=== PATIENT | female | born 1975 | race Caucasian/White ===

== ENCOUNTER 2018-12-16 16:37 | Emergency (ER) | payer OTHER ==
[2018-12-16 16:48] VITALS: TEMP 98.2
--- NOTE | 2018-12-16 17:50 | ED ---
ENT HPI - General Chief complaint: ENT Stated complaint: feels like something in throat x1 week Time Seen by Provider: 12/16/18 17:11 Source: patient Mode of arrival: ambulatory Limitations: no limitations - History of Present Illness Initial comments: Patient is a 43-year-old female presenting to the emergency Department with complaints of a feeling like something is stuck in her esophagus for the past 5 days. Patient states she has an appointment tomorrow to get a gastric emptying study performed, however she has been unable to eat solid foods for the past 5 days secondary to this feeling. Patient states she has tried carbonated beverages without improvement in symptoms. Patient states she went to [facility] yesterday for same complaint was given glucagon which did not help. Patient denies fever, chills, diarrhea, abdominal pain. Patient denies chest pain, difficulty breathing. Patient has no other complaints at this time. Upon arrival to ER, vital signs are stable. - Related Data Home Medications Medication Instructions Recorded Confirmed Albuterol Inhaler [Ventolin Hfa 1 - 2 puff INHALATION RT-QID PRN 12/16/18 12/16/18 Inhaler] Albuterol Nebulized [Ventolin 2.5 mg INHALATION RT-DAILY PRN 12/16/18 12/16/18 Nebulized] Escitalopram [Lexapro] 20 mg PO DAILY 12/16/18 12/16/18 Famotidine [Pepcid] 20 mg PO DAILY 12/16/18 12/16/18 Fluticasone/Salmeterol [Advair 1 puff INHALATION RT-DAILY PRN 12/16/18 12/16/18 100-50 Diskus] Gabapentin [Neurontin] 300 mg PO TID 12/16/18 12/16/18 Levothyroxine Sodium [Synthroid] 112 mcg PO DAILY 12/16/18 12/16/18 Omeprazole [PriLOSEC] 20 mg PO AC-BID 12/16/18 12/16/18 Allergies Allergy/AdvReac Type Severity Reaction Status Date / Time acetaminophen [From Vicodin] AdvReac Nausea & Verified 12/16/18 18:27 Vomiting hydrocodone bitartrate AdvReac Nausea & Verified 12/16/18 18:27 [From Vicodin] Vomiting Review of Systems ROS Statement: Those systems with pertinent positive or pertinent negative responses have been documented in the HPI. ROS Other: All systems not noted in ROS Statement are negative. Past Medical History Past Medical History: Asthma, Cancer, Fibromyalgia, GERD/Reflux, Skin Disorder, Thyroid Disorder Additional Past Medical History / Comment(s): HX HYPOTENSION. THYROID CA 2005- HAD RADIOACTIVE IODINE. ECZEMA History of Any Multi-Drug Resistant Organisms: None Reported Past Surgical History: Breast Surgery, Section, Tubal Ligation Additional Past Surgical History / Comment(s): THYROIDECTOMY. LT EYE SX FOR STRABIMUS. CYSTECTOMY LT BREAST Past Anesthesia/Blood Transfusion Reactions: Motion Sickness, Postoperative Nausea & Vomiting (PONV) Past Psychological History: Anxiety, Depression Smoking Status: Current every day smoker Past Alcohol Use History: Rare Past Drug Use History: None Reported General Exam - General Exam Comments Initial Comments: GENERAL: Well-appearing, well-nourished and in no acute distress. HEAD: Atraumatic, normocephalic. EYES: Pupils equal round and reactive to light, extraocular movements intact, sclera anicteric, conjunctiva are normal. ENT: TMs normal, nares patent, oropharynx clear without exudates. Moist mucous membranes. NECK: Normal range of motion, supple without lymphadenopathy or JVD. LUNGS: Breath sounds clear to auscultation bilaterally and equal. No wheezes rales or rhonchi. HEART: Regular rate and rhythm without murmurs, rubs or gallops. ABDOMEN: Soft, nontender, normoactive bowel sounds. No guarding, no rebound. No masses appreciated. : Deferred EXTREMITIES: Normal range of motion, no pitting or edema. No clubbing or cyanosis. NEUROLOGICAL: Cranial nerves II through XII grossly intact. Normal speech, normal gait. PSYCH: Normal mood, normal affect. SKIN: Warm, Dry, normal turgor, no rashes or lesions noted. Limitations: no limitations Course Vital Signs 12/16/18 12/16/18 16:46 19:06 Temperature 98.2 F Pulse Rate 79 88 Respiratory 18 16 Rate Blood Pressure 127/89 142/71 O2 Sat by Pulse 99 99 Oximetry Medical Decision Making - Medical Decision Making Patient is a 43-year-old female presenting with feeling of something stuck in her esophagus 5 days. Patient is seeing GI for this and does have an appointment tomorrow for gastric emptying study. I do signs are normal, no difficulty in breathing. X-rays reveal no foreign bodies present. Patient went to [facility] yesterday for same complaint and was given glucagon without improvement. Patient was given a nitro to see if that improves her symptoms. Patient will continue following up with GI for this issue. Patient is stable for discharge at this time. Return parameters were discussed with the patient she verbalized understanding. Case discussed with Dr. Yanez. Disposition Clinical Impression: Foreign body sensation in throat Disposition: HOME SELF-CARE Condition: Stable Instructions (If sedation given, give patient instructions): Chronic Dysphagia (DC) Additional Instructions: Please return to the Emergency Department if symptoms worsen or any other concerns. Follow up with GI doctor as discussed. Is patient prescribed a controlled substance at d/c from ED?: No Referrals: Chriss Taylor MD [Primary Care Provider] - 1-2 days
--- NOTE | 2018-12-16 18:07 | XR ---
EXAMINATION TYPE: XR chest 2V DATE OF EXAM: 12/16/2018 COMPARISON: NONE HISTORY: Chest pain. Foreign body TECHNIQUE: Frontal and lateral views of the chest are obtained. FINDINGS: Heart and mediastinum are normal. Lungs are clear. Diaphragm is normal. There is no sign o f radiopaque foreign body. Bony thorax is intact. IMPRESSION: Normal chest
--- NOTE | 2018-12-16 18:09 | XR ---
EXAMINATION TYPE: XR soft tissue neck DATE OF EXAM: 12/16/2018 COMPARISON: NONE HISTORY: Something stuck in the throat TECHNIQUE: 2 views FINDINGS: Epiglottis is normal. Prevertebral soft tissues are not thickened. There is minor spur form ation at C5-6. Tonsils and adenoids appear normal. Subglottic trachea appears normal. I see no defini te esophageal foreign body. IMPRESSION: Negative exam. No evidence of cervical foreign body. Mild spondylosis at C5-6.
[2018-12-16] MEDS ORDERED: NITROGLYCERIN SL TABS 0.4 MG TAB SUBLINGUAL STA (18:47)
[2018-12-16 19:07] VITALS: BP 142/71; PULSE 88; RESP 16
== END 2018-12-16 19:05 | disposition home or self-care (01) ==
LOC: EC 16:37
DX: R09.89 Other specified symptoms and signs involving the circulatory and respiratory systems (principal); J45.909 Unspecified asthma, uncomplicated; M79.7 Fibromyalgia; K21.9 Gastro-esophageal reflux disease without esophagitis; F32.9 Major depressive disorder, single episode, unspecified; F41.9 Anxiety disorder, unspecified; F17.200 Nicotine dependence, unspecified, uncomplicated; Z88.5 Allergy status to narcotic agent; Z88.6 Allergy status to analgesic agent; Z79.51 Long term (current) use of inhaled steroids; Z79.890 Hormone replacement therapy; Z79.899 Other long term (current) drug therapy; Z85.850 Personal history of malignant neoplasm of thyroid; Z92.3 Personal history of irradiation; E89.0 Postprocedural hypothyroidism
CPT/HCPCS: 70360; 71046; 99283

== ENCOUNTER 2022-10-18 15:52 | Emergency (ER) | payer OTHER ==
[2022-10-18] MEDS ORDERED: SODIUM CHLORIDE 0.9% 1,000 ML IV STA (16:41)
[2022-10-18 17:06] LABS: Basophils % (A) 0 %; Eosinophils # (A) 0.2 k/uL (0-0.7); Eosinophils % (A) 2 %; HCT 43.5 % (34.0-46.0); HGB 14.6 gm/dL (11.4-16.0); Lymphocytes # (A) 0.3 k/uL (1.0-4.8); Lymphocytes % (A) 3 %; MCH 30.4 pg (25.0-35.0); MCHC 33.7 g/dL (31.0-37.0); MCV 90.2 fL (80.0-100.0); Mean Platelet Volume 7.8; Monocytes # (A) 0.3 k/uL (0-1.0); Monocytes % (A) 3 %; Neutrophils # (A) 9.5 k/uL (1.3-7.7); Neutrophils % (A) 93 %; Platelet Count 176 k/uL (150-450); RBC 4.82 m/uL (3.80-5.40); RDW 12.6 % (11.5-15.5); WBC 10.3 k/uL (3.8-10.6)
[2022-10-18 17:15] LABS: ALT 36 U/L (4-34); AST 27 U/L (14-36); African American GFR (CKD) 80 (>60 ml/min/1.73 sqM); Albumin 4.1 g/dL (3.5-5.0); Alkaline Phosphatase 76 U/L (38-126); Anion Gap 10 mmol/L; Blood Urea Nitrogen 21 mg/dL (7-17); Calcium 8.9 mg/dL (8.4-10.2); Carbon Dioxide 25 mmol/L (22-30); Chloride 103 mmol/L (98-107); Glucose 124 mg/dL (74-99); Lipase 35 U/L (23-300); Magnesium 1.7 mg/dL (1.6-2.3); Non-African American GFR(CKD) 69 (>60 ml/min/1.73 sqM); Potassium 3.9 mmol/L (3.5-5.1); Sodium 138 mmol/L (137-145); Total Bilirubin 0.7 mg/dL (0.2-1.3); Total Protein 7.2 g/dL (6.3-8.2)
[2022-10-18] MEDS ORDERED: SODIUM CHLORIDE 0.9% 1,000 ML IV ONE (17:51)
[2022-10-18] MEDS ORDERED: ONDANSETRON 4 MG/2 ML VIAL IVP STA (17:52)
[2022-10-18 18:08] VITALS: TEMP 98.8
[2022-10-18 19:16] LABS: Appearance,Urine Clear (Clear); Bilirubin,Urine Negative (Negative); Blood,Urine Small (Negative); Color,Urine Yellow; Glucose,Urine (UA) Negative (Negative); Ketones,Urine Negative (Negative); Leukocyte Esterase,Urine Negative (Negative); Mucus,Urine Rare /hpf; Nitrite,Urine Negative (Negative); Protein,Urine Trace (Negative); RBC,Urine 2 /hpf (0-5); Specific Gravity,Urine 1.031 (1.001-1.035); Squamous Epithelial Cell,Urine 1 /hpf (0-4); Urobilinogen,Urine <2.0 mg/dL (<2.0); WBC,Urine 1 /hpf (0-5)
--- NOTE | 2022-10-18 19:33 | ED ---
Nausea/Vomiting/Diarrhea HPI - General Chief complaint: Nausea/Vomiting/Diarrhea Stated complaint: Weakness Time Seen by Provider: 10/18/22 16:41 Source: patient Mode of arrival: ambulatory Limitations: no limitations - History of Present Illness Initial comments: This is a 47-year-old female with a past medical history including previous thyroid cancer status post thyroidectomy presents emergency department for nausea, vomiting and diarrhea. The patient stated that she had projectile vomiting today as well as diarrhea. The patient had similar episodes to her daughter who is currently being seen at another hospital. The patient stated that she had generalized abdominal soreness without any acute pain. The patient stated that it feels as if she has norovirus which she has had multiple times in the past. The patient denied any other acute pain or complaints at this time. The patient denied any fevers and chills. - Related Data Home Medications Medication Instructions Recorded Confirmed Albuterol Inhaler [Ventolin Hfa 1 - 2 puff INHALATION RT-QID PRN 12/16/18 12/16/18 Inhaler] Albuterol Nebulized [Ventolin 2.5 mg INHALATION RT-DAILY PRN 12/16/18 12/16/18 Nebulized] Escitalopram [Lexapro] 20 mg PO DAILY 12/16/18 12/16/18 Famotidine [Pepcid] 20 mg PO DAILY 12/16/18 12/16/18 Fluticasone Propion/Salmeterol 1 puff INHALATION RT-DAILY PRN 12/16/18 12/16/18 [Advair 100-50 Diskus] Gabapentin [Neurontin] 300 mg PO TID 12/16/18 12/16/18 Levothyroxine Sodium [Synthroid] 112 mcg PO DAILY 12/16/18 12/16/18 Omeprazole [PriLOSEC] 20 mg PO AC-BID 12/16/18 12/16/18 Previous Rx's Medication Instructions Recorded Ondansetron Odt [Zofran Odt] 4 mg PO Q8HR PRN #20 tab 10/18/22 Allergies Allergy/AdvReac Type Severity Reaction Status Date / Time acetaminophen [From Vicodin] AdvReac Nausea & Verified 10/18/22 16:09 Vomiting hydrocodone bitartrate AdvReac Nausea & Verified 10/18/22 16:09 [From Vicodin] Vomiting Review of Systems ROS Statement: Those systems with pertinent positive or pertinent negative responses have been documented in the HPI. ROS Other: All systems not noted in ROS Statement are negative. Past Medical History Past Medical History: Asthma, Cancer, Fibromyalgia, GERD/Reflux, Skin Disorder, Thyroid Disorder Additional Past Medical History / Comment(s): HX HYPOTENSION. THYROID CA 2005- HAD RADIOACTIVE IODINE. ECZEMA History of Any Multi-Drug Resistant Organisms: None Reported Past Surgical History: Breast Surgery, Section, Tubal Ligation Additional Past Surgical History / Comment(s): THYROIDECTOMY. LT EYE SX FOR STRABIMUS. CYSTECTOMY LT BREAST Past Anesthesia/Blood Transfusion Reactions: Motion Sickness, Postoperative Nausea & Vomiting (PONV) Past Psychological History: Anxiety, Depression Past Alcohol Use History: Rare Past Drug Use History: None Reported General Exam Limitations: no limitations General appearance: alert, in no apparent distress Head exam: Present: atraumatic, normocephalic, normal inspection Eye exam: Present: normal appearance, PERRL Pupils: Present: normal accommodation ENT exam: Present: normal exam, normal oropharynx, mucous membranes moist Neck exam: Present: normal inspection, full ROM Respiratory exam: Present: normal lung sounds bilaterally Cardiovascular Exam: Present: regular rate, normal rhythm, normal heart sounds GI/Abdominal exam: Present: soft, normal bowel sounds Extremities exam: Present: normal inspection, full ROM Back exam: Present: normal inspection, full ROM Neurological exam: Present: alert, oriented X3, CN II-XII intact Psychiatric exam: Present: normal affect, normal mood Skin exam: Present: warm, dry Course Vital Signs 10/18/22 10/18/22 16:06 18:08 Temperature 98.2 F 98.8 F Pulse Rate 105 H 80 Respiratory 18 18 Rate Blood Pressure 105/66 126/78 O2 Sat by Pulse 95 98 Oximetry Medical Decision Making - Medical Decision Making Was pt. sent in by a medical professional or institution (, PA, PEANUT VENDOR, urgent care, hospital, or senior living...) When possible be specific @ -No Did you speak to anyone other than the patient for history (EMS, parent, family, police, friend...)? What history was obtained from this source @ -No Did you review nursing and triage notes (agree or disagree)? Why? @ -I reviewed and agree with nursing and triage notes Were old charts reviewed (outside hosp., previous admission, EMS record, old EKG, old radiological studies, urgent care reports/EKG's, senior living records)? Report findings @ -No old charts were reviewed Differential Diagnosis (chest pain, altered mental status, abdominal pain women, abdominal pain men, vaginal bleeding, weakness, fever, dyspnea, syncope, headache, dizziness, GI bleed, back pain, seizure, CVA, palpatations, mental health)? @ -Gastroenteritis, food poisoning, electrolyte abnormalities EKG interpreted by me (3pts min.). @ -None X-rays interpreted by me (1pt min.). @ -None done CT interpreted by me (1pt min.). @ -None done U/S interpreted by me (1pt. min.). @ -None done What testing was considered but not performed or refused? (CT, X-rays, U/S, labs)? Why? @ -None What meds were considered but not given or refused? Why? @ -None Did you discuss the management of the patient with other professionals (professionals i.e. , PA, [employer]AN[employer] VENDOR, lab, RT, psych nurse, foster care social worker, risk investigator, teacher, chief supply chain officer, porter sample case)? Give summary @ -No Was smoking cessation discussed for >3mins.? @ -No Was critical care preformed (if so, how long)? @ -No Were there social determinants of health that impacted care today? How? (Homelessness, low income, unemployed, alcoholism, drug addiction, transportation, low edu. Level, literacy, decrease access to med. care, fpc, rehab)? @ -No Was there de-escalation of care discussed even if they declined (Discuss DNR or withdrawal of care, Hospice)? DNR status @ -No What co-morbidities impacted this encounter? (DM, HTN, Smoking, COPD, CAD, Cancer, CVA, ARF, Chemo, Hep., AIDS, mental health diagnosis, sleep apnea, mo rbid obesity)? @ -Previous thyroid cancer Was patient admitted / discharged? Hospital course, mention meds given and route, prescriptions, significant lab abnormalities, going to OR and other pertinent info. @ -The patient was seen and evaluated emergency department. Physical exam, the patient was resting in bed without any acute distress. Vital signs admission were stable. Due to the nature the patient's complaints, laboratory workup was obtained and was within normal limits. The patient was given IV fluids as well as Zofran and on reevaluation had improvement of her symptoms. The patient likely had gastroenteritis and was given a prescription for Zofran to be taken at home. The patient was advised to hydrate at home and monitor her symptoms. She was advised report back to the emergency department if they became acutely worse. The patient was agreeable to this and all her questions were answered appropriately. The patient was discharged home in stable condition. Undiagnosed new problem with uncertain prognosis? @ -No Drug Therapy requiring intensive monitoring for toxicity (Heparin, Nitro, Insulin, Cardizem)? @ -No Were any procedures done? @ -No Diagnosis/symptom? @ -Nausea, vomiting, diarrhea likely secondary to gastroenteritis Acute, or Chronic, or Acute on Chronic? @ -Acute Uncomplicated (without systemic symptoms) or Complicated (systemic symptoms)? @ -Uncomplicated Side effects of treatment? @ -No Exacerbation, Progression, or Severe Exacerbation? @ -No Poses a threat to life or bodily function? How? (Chest pain, [place], [place], pneumonia, PE, COPD, DKA, ARF, appy, cholecystitis, CVA, Diverticulitis, Homicidal, Suicidal, threat to staff... and all critical care pts) @ -No - Lab Data Result diagrams: 10/18/22 16:51 10/18/22 16:51 Lab Results 10/18/22 10/18/22 10/18/22 Range/Units 16:51 16:51 16:51 WBC 10.3 (3.8-10.6) k/uL RBC 4.82 (3.80-5.40) m/uL Hgb 14.6 (11.4-16.0) gm/dL Hct 43.5 (34.0-46.0) % MCV 90.2 (80.0-100.0) fL MCH 30.4 (25.0-35.0) pg MCHC 33.7 (31.0-37.0) g/dL RDW 12.6 (11.5-15.5) % Plt Count 176 (150-450) k/uL MPV 7.8 Neutrophils % 93 % Lymphocytes % 3 % Monocytes % 3 % Eosinophils % 2 % Basophils % 0 % Neutrophils # 9.5 H (1.3-7.7) k/uL Lymphocytes # 0.3 L (1.0-4.8) k/uL Monocytes # 0.3 (0-1.0) k/uL Eosinophils # 0.2 (0-0.7) k/uL Basophils # 0.0 (0-0.2) k/uL Sodium 138 (137-145) mmol/L Potassium 3.9 (3.5-5.1) mmol/L Chloride 103 (98-107) mmol/L Carbon Dioxide 25 (22-30) mmol/L Anion Gap 10 mmol/L BUN 21 H (7-17) mg/dL Creatinine 0.97 (0.52-1.04) mg/dL Est GFR (CKD-EPI)AfAm 80 (>60 ml/min/1.73 sqM) Est GFR (CKD-EPI)NonAf 69 (>60 ml/min/1.73 sqM) Glucose 124 H (74-99) mg/dL Calcium 8.9 (8.4-10.2) mg/dL Magnesium 1.7 (1.6-2.3) mg/dL Total Bilirubin 0.7 (0.2-1.3) mg/dL AST 27 (14-36) U/L ALT 36 H (4-34) U/L Alkaline Phosphatase 76 (38-126) U/L Total Protein 7.2 (6.3-8.2) g/dL Albumin 4.1 (3.5-5.0) g/dL Lipase 35 (23-300) U/L Urine Color Yellow Urine Appearance Clear (Clear) Urine pH 6.0 (5.0-8.0) Ur Specific Ambrose 1.031 (1.001-1.035) Urine Protein Trace H (Negative) Urine Glucose (UA) Negative (Negative) Urine Ketones Negative (Negative) Urine Blood Small H (Negative) Urine Nitrite Negative (Negative) Urine Bilirubin Negative (Negative) Urine Urobilinogen <2.0 (<2.0) mg/dL Ur Leukocyte Esterase Negative (Negative) Urine RBC 2 (0-5) /hpf Urine WBC 1 (0-5) /hpf Ur Squamous Epith Cells 1 (0-4) /hpf Urine Mucus Rare H (None) /hpf Influenza Type A (PCR) (Not Detectd) Influenza Type B (PCR) (Not Detectd) RSV (PCR) (Not Detectd) SARS-CoV-2 (PCR) (Not Detectd) 10/18/22 Range/Units 16:51 WBC (3.8-10.6) k/uL RBC (3.80-5.40) m/uL Hgb (11.4-16.0) gm/dL Hct (34.0-46.0) % MCV (80.0-100.0) fL MCH (25.0-35.0) pg MCHC (31.0-37.0) g/dL RDW (11.5-15.5) % Plt Count (150-450) k/uL MPV Neutrophils % % Lymphocytes % % Monocytes % % Eosinophils % % Basophils % % Neutrophils # (1.3-7.7) k/uL Lymphocytes # (1.0-4.8) k/uL Monocytes # (0-1.0) k/uL Eosinophils # (0-0.7) k/uL Basophils # (0-0.2) k/uL Sodium (137-145) mmol/L Potassium (3.5-5.1) mmol/L Chloride (98-107) mmol/L Carbon Dioxide (22-30) mmol/L Anion Gap mmol/L BUN (7-17) mg/dL Creatinine (0.52-1.04) mg/dL Est GFR (CKD-EPI)AfAm (>60 ml/min/1.73 sqM) Est GFR (CKD-EPI)NonAf (>60 ml/min/1.73 sqM) Glucose (74-99) mg/dL Calcium (8.4-10.2) mg/dL Magnesium (1.6-2.3) mg/dL Total Bilirubin (0.2-1.3) mg/dL AST (14-36) U/L ALT (4-34) U/L Alkaline Phosphatase (38-126) U/L Total Protein (6.3-8.2) g/dL Albumin (3.5-5.0) g/dL Lipase (23-300) U/L Urine Color Urine Appearance (Clear) Urine pH (5.0-8.0) Ur Specific [place] (1.001-1.035) Urine Protein (Negative) Urine Glucose (UA) (Negative) Urine Ketones (Negative) Urine Blood (Negative) Urine Nitrite (Negative) Urine Bilirubin (Negative) Urine Urobilinogen (<2.0) mg/dL Ur Leukocyte Esterase (Negative) Urine RBC (0-5) /hpf Urine WBC (0-5) /hpf Ur Squamous Epith Cells (0-4) /hpf Urine Mucus (None) /hpf Influenza Type A (PCR) Not Detected (Not Detectd) Influenza Type B (PCR) Not Detected (Not Detectd) RSV (PCR) Not Detected (Not Detectd) SARS-CoV-2 (PCR) Not Detected (Not Detectd) Disposition Clinical Impression: Dehydration, Gastroenteritis Disposition: HOME SELF-CARE Condition: Stable Instructions (If sedation given, give patient instructions): Acute Nausea and Vomiting (ED), Acute Diarrhea (ED) Prescriptions: Ondansetron Odt [Zofran Odt] 4 mg PO Q8HR PRN #20 tab PRN Reason: Nausea Is patient prescribed a controlled substance at d/c from ED?: No Referrals: Chriss Taylor MD [Primary Care Provider] - 1-2 days Time of Disposition: 16:30
[2022-10-18 19:49] VITALS: RESP 16
[2022-10-18 20:35] VITALS: BP 120/76; PULSE 90
== END 2022-10-18 20:35 | disposition home or self-care (01) ==
LOC: EC 15:52
DX: K52.9 Noninfective gastroenteritis and colitis, unspecified (principal); E86.0 Dehydration; J45.909 Unspecified asthma, uncomplicated; K21.9 Gastro-esophageal reflux disease without esophagitis; F41.9 Anxiety disorder, unspecified; F32.A Depression, unspecified; Z20.822 Contact with and (suspected) exposure to COVID-19; Z79.890 Hormone replacement therapy; Z79.899 Other long term (current) drug therapy; Z79.51 Long term (current) use of inhaled steroids; Z88.5 Allergy status to narcotic agent; Z88.6 Allergy status to analgesic agent
CPT/HCPCS: 36415; 80053; 83690; 83735; 85025; 81001; 87636; 99284; 96374; 96361 ×2; J2405

== ENCOUNTER 2023-05-31 16:24 | Emergency (ER) | payer OTHER ==
[2023-05-31] MEDS: HYDROcodone/APAP 5-325MG 1 EACH TAB PO STA (16:53)
[2023-05-31] MEDS: ONDANSETRON ODT 4 MG TAB PO STA (16:53)
[2023-05-31] MEDS: MECLIZINE 12.5 MG TAB PO STA (16:54)
--- NOTE | 2023-05-31 17:21 | ED ---
General Adult HPI - General Chief complaint: Head Injury Stated complaint: Dizziness,Hit Head on tv corner Time Seen by Provider: 05/31/23 16:38 Source: patient, RN notes reviewed Mode of arrival: ambulatory Limitations: no limitations - History of Present Illness Initial comments: 47-year-old female presents emergency department chief complaint of headache and dizziness. States that she was at home 3 days ago when she went to fix cords by her television when she moves her head up at the right temporal region on her TV stand. Patient denies loss of consciousness after she had her head, states that she felt dizzy and nauseous, but did not have any episodes of vomiting. Has taken ibuprofen at home with minimal relief of her headaches. States that the dizziness is worse when she moves her head quickly, denies tinnitus or parasehtesias. - Related Data Home Medications Medication Instructions Recorded Confirmed Albuterol Inhaler [Ventolin Hfa 1 - 2 puff INHALATION RT-QID PRN 12/16/18 12/16/18 Inhaler] Albuterol Nebulized [Ventolin 2.5 mg INHALATION RT-DAILY PRN 12/16/18 12/16/18 Nebulized] Escitalopram [Lexapro] 20 mg PO DAILY 12/16/18 12/16/18 Famotidine [Pepcid] 20 mg PO DAILY 12/16/18 12/16/18 Fluticasone Propion/Salmeterol 1 puff INHALATION RT-DAILY PRN 12/16/18 12/16/18 [Advair 100-50 Diskus] Gabapentin [Neurontin] 300 mg PO TID 12/16/18 12/16/18 Levothyroxine Sodium [Synthroid] 112 mcg PO DAILY 12/16/18 12/16/18 Omeprazole [PriLOSEC] 20 mg PO AC-BID 12/16/18 12/16/18 Previous Rx's Medication Instructions Recorded Ondansetron Odt [Zofran Odt] 4 mg PO Q8HR PRN #20 tab 10/18/22 predniSONE [Deltasone] 20 mg PO BID #10 tab 12/10/22 Meclizine [Antivert] 12.5 mg PO Q8HR PRN #15 tablet 05/31/23 Ondansetron Odt [Zofran Odt] 4 mg PO Q8HR PRN #10 tab 05/31/23 Allergies Allergy/AdvReac Type Severity Reaction Status Date / Time acetaminophen [From Vicodin] AdvReac Nausea & Verified 05/31/23 16:30 Vomiting hydrocodone bitartrate AdvReac Nausea & Verified 05/31/23 16:30 [From Vicodin] Vomiting Review of Systems ROS Statement: Those systems with pertinent positive or pertinent negative responses have been documented in the HPI. ROS Other: All systems not noted in ROS Statement are negative. Past Medical History Past Medical History: Asthma, Cancer, Fibromyalgia, GERD/Reflux, Skin Disorder, Thyroid Disorder Additional Past Medical History / Comment(s): HX HYPOTENSION. THYROID CA 2005- HAD RADIOACTIVE IODINE. ECZEMA History of Any Multi-Drug Resistant Organisms: None Reported Past Surgical History: Breast Surgery, Section, Tubal Ligation Additional Past Surgical History / Comment(s): THYROIDECTOMY. LT EYE SX FOR STRABIMUS. CYSTECTOMY LT BREAST Past Anesthesia/Blood Transfusion Reactions: Motion Sickness, Postoperative Nausea & Vomiting (PONV) Past Psychological History: Anxiety, Depression Past Alcohol Use History: Rare Past Drug Use History: None Reported General Exam Limitations: no limitations General appearance: alert, in no apparent distress Head exam: Present: atraumatic, normocephalic, other (hematoma over the right temporal region, 2.5 cm without overlying laceration or ecchymosis.) Eye exam: Present: normal appearance, PERRL, EOMI. Absent: scleral icterus, conjunctival injection, periorbital swelling ENT exam: Present: normal exam, mucous membranes moist Neck exam: Present: normal inspection. Absent: tenderness, meningismus, lymphadenopathy Respiratory exam: Present: normal lung sounds bilaterally. Absent: respiratory distress, wheezes, rales, rhonchi, stridor Cardiovascular Exam: Present: regular rate, normal rhythm, normal heart sounds. Absent: systolic murmur, diastolic murmur, rubs, gallop, clicks GI/Abdominal exam: Present: soft, normal bowel sounds. Absent: distended, tenderness, guarding, rebound, rigid Extremities exam: Present: normal inspection, full ROM, normal capillary refill. Absent: tenderness, pedal edema, joint swelling, calf tenderness Back exam: Present: normal inspection Neurological exam: Present: alert, oriented X3, CN II-XII intact Psychiatric exam: Present: normal affect, normal mood Skin exam: Present: warm, dry, intact, normal color. Absent: rash Course Vital Signs 05/31/23 05/31/23 16:28 17:59 Temperature 98.8 F 97.5 F L Pulse Rate 76 60 Respiratory 18 20 Rate Blood Pressure 148/87 132/87 O2 Sat by Pulse 98 98 Oximetry Medical Decision Making - Medical Decision Making Was pt. sent in by a medical professional or institution (, PA, CHILD CARE EDUCATION COORDINATOR, urgent care, hospital, or custodial...) When possible be specific @ -No Did you speak to anyone other than the patient for history (EMS, parent, family, police, friend...)? What history was obtained from this source @ -No Did you review nursing and triage notes (agree or disagree)? Why? @ -I reviewed and agree with nursing and triage notes Were old charts reviewed (outside hosp., previous admission, EMS record, old EKG, old radiological studies, urgent care reports/EKG's, custodial records)? Report findings @ -No old charts were reviewed Differential Diagnosis (chest pain, altered mental status, abdominal pain women, abdominal pain men, vaginal bleeding, weakness, fever, dyspnea, syncope, headache, dizziness, GI bleed, back pain, seizure, CVA, palpatations, mental health, musculoskeletal)? @ -Differential Dizziness: Benign paroxysmal positional Vertigo, Menieres disease, otitis media, acoustic neuroma, vertebrobasilar insufficiency, cerebellar stroke, encephalitis, hypovolemic, arrhythmia, coronary artery syndrome, anemia, this is not meant to be an all-inclusive list EKG interpreted by me (3pts min.). @ -None X-rays interpreted by me (1pt min.). @ -None done CT interpreted by me (1pt min.). @ -CT brain no acute intracranial process U/S interpreted by me (1pt. min.). @ -None done What testing was considered but not performed or refused? (CT, X-rays, U/S, labs)? Why? @ -None What meds were considered but not given or refused? Why? @ -None Did you discuss the management of the patient with other professionals (professionals i.e. , DAMIR, CHILD CARE EDUCATION COORDINATOR, lab, RT, psych nurse, secondary social studies teacher, dollyman, teacher, protection officer, case managers)? Give summary @ -No Was smoking cessation discussed for >3mins.? @ -No Was critical care preformed (if so, how long)? @ -No Were there social determinants of health that impacted care today? How? (Homelessness, low income, unemployed, alcoholism, drug addiction, transportation, low edu. Level, literacy, decrease access to med. care, senior living, rehab)? @ -No Was there de-escalation of care discussed even if they declined (Discuss DNR or withdrawal of care, Hospice)? DNR status @ -No What co-morbidities impacted this encounter? (DM, HTN, Smoking, COPD, CAD, Cancer, CVA, ARF, Chemo, Hep., AIDS, mental health diagnosis, sleep apnea, morbid obesity)? @ -None Was patient admitted / discharged? Hospital course, mention meds given and route, prescriptions, significant lab abnormalities, going to OR and other pertinent info. @ -Discharged. 47-year-old female with chief complaint of headaches and dizziness. Was given oral pain medication, antinausea medication, and meclizine to aid in symptoms. CT head no evidence of intracranial process present. Patient states that she feels better after administration of medications. Patient's physical exam was unremarkable for acute neurological deficits, no evidence of cerebellar ataxia. Patient's vitals are stable and symptoms have i mproved. Symptoms are most likely secondary to acute head trauma due to fusion on the right temporal region of the scalp. It was given outpatient prescription for meclizine and Zofran as needed for dizziness and nausea. Patient to follow- up with primary care provider. This case was discussed with my attending, Dr. Baldwin, who is agreeable with lab interpretation and with discharge. Undiagnosed new problem with uncertain prognosis? @ -No Drug Therapy requiring intensive monitoring for toxicity (Heparin, Nitro, Insulin, Cardizem)? @ -No Were any procedures done? @ -No Diagnosis/symptom? @ -Acute head injury, dizziness, nausea Acute, or Chronic, or Acute on Chronic? @Acute Uncomplicated (without systemic symptoms) or Complicated (systemic symptoms)? @ -complicated Side effects of treatment? @ -No Exacerbation, Progression, or Severe Exacerbation? @ -No Poses a threat to life or bodily function? How? (Chest pain, USA, SD, pneumonia, PE, COPD, DKA, ARF, appy, cholecystitis, CVA, Diverticulitis, Homicidal, Suicidal, threat to staff... and all critical care pts) @ -No Disposition Clinical Impression: Headache, Contusion of scalp Narrative: Please return to the Emergency Department if symptoms worsen or any other concerns. Disposition: HOME SELF-CARE Condition: Good Instructions (If sedation given, give patient instructions): Dizziness (ED) Prescriptions: Meclizine [Antivert] 12.5 mg PO Q8HR PRN #15 tablet PRN Reason: Vertigo Ondansetron Odt [Zofran Odt] 4 mg PO Q8HR PRN #10 tab PRN Reason: Nausea Is patient prescribed a controlled substance at d/c from ED?: No Referrals: Anahi Hill [Primary Care Provider] - 1-2 days Time of Disposition: 17:52
--- NOTE | 2023-05-31 17:22 | CT ---
EXAMINATION TYPE: CT brain wo con CT DLP: 1068.4 mGycm, Automated exposure control for dose reduction was used. DATE OF EXAM: 05/31/2023 5:05 PM COMPARISON: None. CLINICAL INDICATION:Female, 47 years old with history of fall, dizziness, Pt hit head x3days ago, pt now c/o dizziness and MAHMOOD. TECHNIQUE: Brain: Axial CT images of the brain were obtained with coronal and sagittal reformats created and rev iewed. Contrast used: None. Oral contrast used: None. FINDINGS: Brain: Extra-axial spaces: No abnormal extra-axial fluid collections. Ventricular system: Within normal limits, cavum septum callosum. Cerebral parenchyma: No acute intraparenchymal hemorrhage or mass effect. The huntley-white junction is well differentiated. Cerebellum: Unremarkable. Mass effect: No evidence of midline shift. Intracranial vasculature: unremarkable Soft tissues: Normal. Calvarium/osseous structures: No depressed skull fracture. Paranasal sinuses and mastoid air cells: Mild scattered paranasal sinus disease. Visualized orbits: Orbital contents are intact. IMPRESSION: No acute intracranial process.
[2023-05-31 18:31] VITALS: BP 132/87; PULSE 60; RESP 20; TEMP 97.5
== END 2023-05-31 18:00 | disposition home or self-care (01) ==
LOC: EC 16:24
DX: S00.03XA Contusion of scalp, initial encounter (principal); Z88.5 Allergy status to narcotic agent; X58.XXXA Exposure to other specified factors, initial encounter
CPT/HCPCS: 70450; 99283

== ENCOUNTER → 2023-06-20 | Outpatient (CLI) | payer OTHER ==
--- NOTE | 2023-06-20 15:58 | MR ---
EXAMINATION TYPE: MR cervical spine wo con DATE OF EXAM: 06/20/2023 1:07 PM COMPARISON: NONE HISTORY: Neck pain, headaches Multiplanar MultiSpin echo imaging of the cervical spine was performed. Comparison: none C2-C3: No evidence for degenerative disc disease. No disc bulge/herniation or protrusion. No Canal stenosis. Foramina are patent bilaterally. C3-C4: Moderate disc desiccation and posterior disc bulge with effacement of the ventral thecal sac p aracentrally to the left with mild distortion of the cervical spinal cord. Borderline central stenosi s. Mild left foraminal encroachment. C4-C5: Moderate disc desiccation with broad-based posterior disc bulge and effacement of the ventral thecal sac. Mild central stenosis. Mild ventral CORD contact. Mild to moderate bilateral neural david inal encroachment. C5-C6: Severe disc desiccation ventral and dorsal spondylosis. Moderate effacement of the ventral the tripp sac with severe central stenosis. Severe bilateral foraminal encroachment. C6-C7: Moderate disc desiccation with posterior central disc herniation measuring 5.7 mm AP dimension by 1.2 cm. There is severe central stenosis and ventral cord contact. Early compressive myelopathy i s suspected. Moderate left-sided foraminal encroachment. C7-T1: No evidence for degenerative disc disease. No disc bulge/herniation or protrusion. No Canal stenosis. Foramina are patent bilaterally. Cervical segments are intact. There is normal alignment. Craniovertebral junction relationships are within normal limits. IMPRESSION: 1. Multilevel degenerative disc disease. 2. Multilevel central stenosis and foraminal encroachment. 3. Moderately large disc herniation posterocentrally and to the left at C6-[address] with moderate cord conta ct and severe central stenosis. 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 See above.
== END | disposition home or self-care (01) ==
LOC: RADMRIMAIN 12:11
PROVIDERS: ATTEND Orthopaedic Surgery
DX: M50.00 Cervical disc disorder with myelopathy, unspecified cervical region (principal); M48.02 Spinal stenosis, cervical region; M50.223 Other cervical disc displacement at C6-C7 level; R51.9 Headache, unspecified
CPT/HCPCS: 72141

== ENCOUNTER → 2023-07-05 | Outpatient (CLI) | payer OTHER ==
[2023-07-05 13:57] VITALS: BP 133/86; PULSE 96; RESP 16; TEMP 98.6
--- NOTE | 2023-07-05 14:37 | P.PAINPG ---
PQRS Measure Charge Sheet Comment: HISTORY OF PRESENT ILLNESS: A 47 yr old female w mother at side as a referral from Dr Lee presents today w severe and chronic LBP > 1 yr secondary to DDD, spondylosis and facet arthropathy for evaluation. Pt states pain level is provoked at 9 /10 in intensity, constant, localized in the lower lumbar spine, predominantly axial, stabbing in character w occasional shooting pain towards the R hip. Pain is provoked by climbing stairs. Pain is alleviated by chiropractic treatments x 6 wks which ended in Mar 2023, physician guided home exercises/ stretches daily since Mar 2023, medications (Neurontin, Flexeril, Ibu), Lidocaine topical, repositioning and rest . Oswestry axial pain score at 12. PMH: OA, Asthma, Cancer, Fibromyalgia, GERD, Eczema, Hypothyroid Disorder, MDD/ Anxiety PSH: Thyroid CA w Thyroidectomy, L Eye Surgery for Strabismus, L Breast Cystectomy, C Section, Tubal Ligation SH: Never smoker, Rare ETOH use, No illicit drug use FH: Non contributory All: See list Meds: See list REVIEW OF ORGAN SYSTEMS: CONSTITUTIONAL: No fevers or chills. No recent weight loss. NEUROLOGICAL: + numbness and tingling along the distal extremities. No seizure disorders or headaches. MUSCULOSKELETAL: + pain PSYCHIATRIC: Denies current depression or suicidal thoughts. Physical Examinations : Constitutional : Cooperative , not in acute distress . Neurologic : Cranial nerve II to XII intact. No focal neurological deficits. Psychiatric : alert & oriented x 3. Matching mood & appropriate affect. Judgment & insight intact. Musculoskeletal : Cervical Spine Motor strength in the deltoid and biceps: Normal right side. Normal Left side Motor strength biceps and the wrist extensors: Normal right side . Normal left side Motor strength in the triceps muscle: Normal right side. Normal left side Deep tendon reflexes: Normal at the biceps. Normal at Brachioradialis. Normal at triceps Vertebral body tenderness to deep palpation over Cervical facet loading test: positive bilaterally Spurling test: positive bilaterally Neck distraction test: positive bilaterally Hermilo sign: positive bilaterally Lumbar spine +R Omar Test Motor strength lower extremities ,thigh and legs 5/5 Right side , 5/5 Left side Deep tendon reflexes : Normal Knee Jerk. Normal Ankle Jerk Vertebral body tenderness over Burleson Test positive Lumbar facet Loading Test: positive Right / positive Left Range of motion of the lumbar spine Flexion 30 degrees, extension 10 degrees Straight Leg Raise test: Left/ Right positive at degrees Rodney test: positive right / positive left. Severe tenderness over the Sacroiliac joint on the Right / Left sides Gaenslen test: positive bilaterally Seated flexion test: positive bilaterally. Sacral spine : Severe tenderness over the Sacroiliac joint: right side / left side Range of motion: Flexion of the lumbar spine <60 degrees Range of motion: Extension of the lumbar spine <20 degrees Gaenslen's Test positive Rodney test: positive right side / left side Thigh Thrust Test Sacral Thrust Test Imaging: MRI noncontrast of the lumbar spine from 12/30/2022 reviewed Assessment/ Plan : Lumbar DDD Recommendation R hip x ray M16.10. May need additional testing if indicated. All questions answered. I have spent greater than 30 minutes on patient care today. Dr Soto was available by phone for the evaluation of this patient. The time was used to review the medical records including relevant urine studies and Prescription history (MAPs), review of the available imaging, evaluation and examination of the patient, coordination of care with the medical staff and if applicable referring physicians, as well as creation of the medical record PQRS Narrative: Smoking Status Current every day smoker Home Medications: Ambulatory Orders Albuterol Inhaler [Ventolin Hfa Inhaler] 1 - 2 puff INHALATION RT-QID PRN 12/16/18 Albuterol Nebulized [Ventolin Nebulized] 2.5 mg INHALATION RT-DAILY PRN 12/16/18 Escitalopram [Lexapro] 20 mg PO DAILY 12/16/18 Famotidine [Pepcid] 20 mg PO DAILY 12/16/18 Fluticasone Propion/Salmeterol [Advair 100-50 Diskus] 1 puff INHALATION RT-DAILY PRN 12/16/18 Gabapentin [Neurontin] 300 mg PO TID 12/16/18 Levothyroxine Sodium [Synthroid] 112 mcg PO DAILY 12/16/18 Omeprazole [PriLOSEC] 20 mg PO AC-BID 12/16/18 Ondansetron Odt [Zofran Odt] 4 mg PO Q8HR PRN #20 tab 10/18/22 predniSONE [Deltasone] 20 mg PO BID #10 tab 12/10/22 Meclizine [Antivert] 12.5 mg PO Q8HR PRN #15 tablet 05/31/23 Ondansetron Odt [Zofran Odt] 4 mg PO Q8HR PRN #10 tab 05/31/23 Controlled Substance Measures - Controlled Substance Measures Is patient prescribed a controlled substance at discharge?: No
--- NOTE | 2023-07-06 08:04 | XR ---
EXAMINATION TYPE: XR Hip Complete RT DATE OF EXAM: 07/05/2023 CLINICAL HISTORY: pain TECHNIQUE: AP and frogleg views of the right hip are obtained. COMPARISON: None. FINDINGS: There is no acute fracture/dislocation evident. The joint space appears within normal li mits. The overlying soft tissue appears unremarkable. IMPRESSION: 1. There is no acute fracture or dislocation. ICD 10 NO FRACTURE, INITIAL EVALUATION
== END ==
LOC: PNWHC3 13:04
PROVIDERS: ATTEND Specialist
DX: M16.11 Unilateral primary osteoarthritis, right hip (principal); M54.50 Low back pain, unspecified; M51.36 Other intervertebral disc degeneration, lumbar region; F17.200 Nicotine dependence, unspecified, uncomplicated; Z88.1 Allergy status to other antibiotic agents; Z88.5 Allergy status to narcotic agent
CPT/HCPCS: 73502; G0463; 99211

== ENCOUNTER 2023-07-07 09:16 | Day surgery (SDC) | payer OTHER ==
[~2023-07-07 09:16] MED LIST: LIDOCAINE 1% (10MG/ML) FOR IV START INTRADERMA PRN
[2023-07-07] MEDS: LACTATED RINGERS 1,000 ML IV SCH (09:58)
[2023-07-07] MEDS ORDERED: ONDANSETRON 4 MG/2 ML VIAL ONE (10:03)
[2023-07-07 10:26] VITALS: TEMP 98
[2023-07-07] MEDS ORDERED: PROPOFOL 10 MG/ML 20 ML VIAL IV ONE (10:32)
[2023-07-07] MEDS ORDERED: LIDOCAINE 1% INJ 10MG/ML (20 ML MDV) ONE (10:32)
--- NOTE | 2023-07-07 10:43 | P.PCN ---
Date of Procedure: 07/07/23 Procedure(s) Performed: BRIEF HISTORY: Patient is a 47-year-old, pleasant, white female description of endoscopies about evaluation of minimal dysphagia to solids and liquids for the last 20 years duration. She was extensively investigated [facility] as well as [facility] with EGD/dilation and esophageal manometry's with no help. Because of worsening symptoms she is gone for repeat upper endoscopy with dilation today. PROCEDURE PERFORMED: Esophagogastroduodenoscopy with biopsy and dilation PREOPERATIVE DIAGNOSIS: Intermittent dysphagia to solids and liquids for the last 20 years duration. IV sedation per anesthesia. PROCEDURE: After informed consent was obtained, the patient was brought into the endoscopy unit. IV sedation was administered by Anesthesia under continuous monitoring. Initially the Olympus GIF-140 video endoscope was inserted into the mouth. Esophagus intubated without any difficulty. It was gradually advanced into the stomach and duodenum and carefully examined. The bulb and the second part of the duodenum appeared normal. The scope at this time was withdrawn to the stomach, adequately insufflated with air, and upon careful examination, mucosa of the antrum, body, cardia and the fundus appeared normal. The scope was then withdrawn into the esophagus. Small hiatal hernia noted. The GE junction was located at 39 cm from the incisors. There was mild narrowing of the GE junction and this was dilated using 20 mm TTS balloon for 30 seconds. The esophagus appeared normal. There were no erosions or ulcerations seen, biopsies were done from the mid and distal esophagus rule out eosinophilic esophagitis and the patient tolerated the procedure well. IMPRESSION: 1. Small hiatal hernia but no evidence of obvious esophageal stricture. 2. Mild narrowing at the GE junction s/p empiric balloon dilation using 20 mm TTS balloon as described above. RECOMMENDATIONS: The findings of this examination were discussed with the patient as well as his family. She was advised to remain on clear liquids for 2 hours. Continue with Prilosec 20 mg daily and follow antireflux measures. Follow-up in the office in 3 to 4 weeks.
[2023-07-07 11:13] VITALS: BP 107/78; PULSE 68; RESP 16
== END 2023-07-07 11:19 | disposition home or self-care (01) ==
LOC: ORWHC2ENDO 09:16
PROVIDERS: ATTEND Internal Medicine Gastroenterology
DX: K44.9 Diaphragmatic hernia without obstruction or gangrene (principal); K21.00 Gastro-esophageal reflux disease with esophagitis, without bleeding; E03.9 Hypothyroidism, unspecified; M79.7 Fibromyalgia; F41.9 Anxiety disorder, unspecified; F32.A Depression, unspecified; Z88.1 Allergy status to other antibiotic agents; Z79.890 Hormone replacement therapy; Z79.899 Other long term (current) drug therapy
CPT/HCPCS: 81025; 88305; 43239; 43249; J2001; J2704; C1726

== ENCOUNTER → 2023-07-21 | Outpatient (CLI) | payer OTHER ==
--- NOTE | 2023-07-24 06:36 | MR ---
EXAMINATION TYPE: MR hip RT wo con DATE OF EXAM: 07/21/2023 COMPARISON: Right hip x-ray May 06, 2023 HISTORY: Extreme Pain and Limited Movement x1 year Standard multiplanar, multisequence MRI departmental protocol Multiplanar, multisequence images of the pelvis focusing on the right hip were acquired without contr ast. FINDINGS: No significant joint space loss or spurring in either hip. No subchondral cystic change. Sm all symmetric hip joint effusions are favored physiologic. Femoral head shapes are maintained bilater ally. No serpiginous diminished T1 signal to suggest avascular necrosis. No significant increased T2 signal to suggest osseous edema. Mild increased T2 signal at level of the greater trochanter in the r ight hip. Muscle bulk is symmetric and maintained bilaterally. No groin hernia or adenopathy is seen bilaterally. No abnormal bowel dilatation. No free fluid in the pelvis. Arcuate type morphology to the uterus is s een. Poorly distended bladder is noted. IMPRESSION: Mild insertional tendinosis greater trochanter level of the right hip otherwise unremarkable study.
== END | disposition home or self-care (01) ==
LOC: RADMRIMAIN 21:45
PROVIDERS: ATTEND Specialist
DX: M16.11 Unilateral primary osteoarthritis, right hip (principal)

== ENCOUNTER → 2024-03-05 | Outpatient (CLI) | payer OTHER ==
--- NOTE | 2024-03-05 13:00 | MR ---
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 TECHNIQUE: Multiplanar, multisequence images of the brain and brainstem were acquired without IV con trast. Diffusion weighted imaging is performed. FINDINGS: No evidence for acute infarction, hemorrhage, mass, mass effect, midline shift, herniation, effacemen t of basal cisterns, or extra-axial fluid collection. The ventricles are age-appropriate. Mild volume loss overlying the bilateral cerebral convexities. Major intracranial flow voids are intact. T2/FLAIR weighted sequences show a few scattered foci of bright signal change particularly in the sub cortical regions of the frontal lobes, 5-10 on the right and less than 5 on the left. There is anatomic variation with persistent CSP. Otherwise, midline structures demonstrate normal mor phology. The craniocervical junction is normal. There is moderate mucosal thickening throughout the ethmoid air cells and mild along the floors of ma xillary sinuses. Globes are intact. IMPRESSION: 1. Mild cerebral cortical volume loss. Mild burden of chronic small vessel ischemic disease. 2. No acute intracranial abnormality seen. 3. Moderate chronic ethmoid sinus disease and mild within the maxillary sinuses. [facility], , 03/05/2024 12:58 PM
== END | disposition home or self-care (01) ==
LOC: RADMRIMAIN 11:26
PROVIDERS: ATTEND Family Medicine
DX: I67.82 Cerebral ischemia (principal); J32.2 Chronic ethmoidal sinusitis; Q79.60 Ehlers-Danlos syndrome, unspecified
CPT/HCPCS: 70551

== ENCOUNTER → 2024-03-11 | Outpatient (CLI) | payer OTHER ==
[2024-03-11 15:40] LABS: ALT 23 U/L (8-44); AST 17 U/L (13-35); Albumin 4.2 g/dL (3.8-4.9); Albumin/Globulin Ratio 1.68 Ratio (1.60-3.17); Alkaline Phosphatase 82 U/L (41-126); Blood Urea Nitrogen 17.1 mg/dL (9.0-27.0); Calcium 9.3 mg/dL (8.7-10.3); Carbon Dioxide 26.3 mmol/L (21.6-31.8); Chloride 100 mmol/L (96-109); Chol/HDL Ratio 3.74 Ratio; Globulin 2.5 g/dL (1.6-3.3); Glucose 110 mg/dL (70-110); LDL Cholesterol,Calculated 131.5 mg/dL (0.0-131.0); Potassium 3.9 mmol/L (3.5-5.5); Sodium 135 mmol/L (135-145); Total Bilirubin 0.3 mg/dL (0.3-1.2); Total Protein 6.7 g/dL (6.2-8.2)
== END | disposition home or self-care (01) ==
LOC: LABWHC1 11:32
PROVIDERS: ATTEND Family Medicine
DX: M04.9 Autoinflammatory syndrome, unspecified (principal); K22.2 Esophageal obstruction; R13.19 Other dysphagia; R79.9 Abnormal finding of blood chemistry, unspecified; R76.8 Other specified abnormal immunological findings in serum
CPT/HCPCS: 36415; 80053; 80061; 84443

== ENCOUNTER → 2024-03-29 | Outpatient (CLI) | payer OTHER ==
--- NOTE | 2024-04-06 07:52 | US ---
EXAMINATION TYPE: US groin RT DATE OF EXAM: 03/29/2024 COMPARISON: NONE CLINICAL INDICATION: Female, 48 years old with history of K40.90 Right groin pain; Patient states joaquim ateral groin burning sensation for awhile, doctor felt lump on exam TECHNIQUE: Grayscale imaging in the area of concern in the right groin. FINDINGS: ? Herniated area within patients right groin = 5.1 X 1.3 X 2.6 cm No internal vascularity or blood flow seen. Lymph node noted within patients AOC as well. IMPRESSION: Suspected fat-containing right groin hernia. Consider CT imaging for confirmation. [facility], , 04/06/2024 7:50 AM
== END | disposition home or self-care (01) ==
LOC: RADUSWWP 15:42
PROVIDERS: ATTEND Family Medicine
DX: K40.90 Unilateral inguinal hernia, without obstruction or gangrene, not specified as recurrent (principal)

== ENCOUNTER 2024-04-05 03:45 | Inpatient (IN) | payer MEDICAID, OTHER ==
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
[2024-04-05 05:42] LABS: Basophils % (A) 0 %; Eosinophils # (A) 0.1 k/uL (0-0.7); Eosinophils % (A) 1 %; HCT 37.8 % (34.0-46.0); Lymphocytes # (A) 1.1 k/uL (1.0-4.8); Lymphocytes % (A) 12 %; MCH 31.5 pg (25.0-35.0); MCHC 34.5 g/dL (31.0-37.0); MCV 91.2 fL (80.0-100.0); Mean Platelet Volume 7.6; Monocytes # (A) 0.4 k/uL (0-1.0); Monocytes % (A) 5 %; Neutrophils # (A) 7.3 k/uL (1.3-7.7); Neutrophils % (A) 82 %; Platelet Count 236 k/uL (150-450); RBC 4.14 m/uL (3.80-5.40); RDW 12.7 % (11.5-15.5); WBC 8.9 k/uL (3.8-10.6)
[2024-04-05 05:52] LABS: ALT 21 U/L (4-34); Acetaminophen <10.0 ug/mL; African American GFR (CKD) >90 (>60 ml/min/1.73 sqM); Albumin 4.3 g/dL (3.5-5.0); Alcohol <10 mg/dL; Anion Gap 9 mmol/L; Blood Urea Nitrogen 17 mg/dL (7-17); Calcium 9.5 mg/dL (8.4-10.2); Carbon Dioxide 24 mmol/L (22-30); Chloride 105 mmol/L (98-107); Glucose 113 mg/dL (74-99); Non-African American GFR(CKD) 83 (>60 ml/min/1.73 sqM); Salicylate <1.0 mg/dL; Sodium 138 mmol/L (137-145); Total Bilirubin 0.5 mg/dL (0.2-1.3)
[2024-04-05] MEDS: ONDANSETRON ODT 4 MG TAB PO STA (05:58)
[2024-04-05 06:12] LABS: Amorphous Sediment,Urine Rare /hpf; Appearance,Urine Clear (Clear); Bacteria,Urine Rare /hpf; Bilirubin,Urine Negative (Negative); Blood,Urine Small (Negative); Color,Urine Light Yellow; Glucose,Urine (UA) Negative (Negative); Ketones,Urine Negative (Negative); Leukocyte Esterase,Urine Negative (Negative); Mucus,Urine Occasional /hpf; Nitrite,Urine Negative (Negative); PH, Urine 5.5 (5.0-8.0); Protein,Urine Negative (Negative); RBC,Urine 3 /hpf (0-5); Specific Gravity,Urine 1.021 (1.001-1.035); Squamous Epithelial Cell,Urine 2 /hpf (0-4); Urobilinogen,Urine <2.0 mg/dL (<2.0); WBC,Urine 2 /hpf (0-5)
[2024-04-05 06:18] LABS: AST 24 U/L (14-36); Alkaline Phosphatase 58 U/L (38-126); Potassium 4.2 mmol/L (3.5-5.1)
[2024-04-05 06:50] LABS: Amphetamine Screen,Urine Not Detected (NotDetected); Barbiturate Screen,Urine Not Detected (NotDetected); Benzodiazepines Screen,Urine Not Detected (NotDetected); Cocaine Screen,Urine Not Detected (NotDetected); Methadone Screen, Urine Not Detected (NotDetected); Opiate Screen,Urine Not Detected (NotDetected); Oxycodone Screen, Urine Not Detected (NotDetected); Phencyclidine Screen,Urine Not Detected (NotDetected); Tricyclic Antidepressant,Urine Not Detected (NotDetected); Urn Cannabinoid Scrn Detected (NotDetected)
[2024-04-05] MEDS ORDERED: IBUPROFEN 600 MG TAB PO PRN (15:05)
[2024-04-05] MEDS ORDERED: HALOPERIDOL LACTATE 5 MG/ML 1 ML VIAL IM PRN (15:05)
[2024-04-05] MEDS ORDERED: LORazepam 2 MG/ML INJ IM PRN (15:05)
[2024-04-05] MEDS ORDERED: MAGNESIUM HYDROXIDE 2,400 MG/30 ML CUP PO PRN (15:05)
[2024-04-05] MEDS ORDERED: haloperidoL 5 MG TAB PO PRN (15:05)
[2024-04-05] MEDS ORDERED: LORazepam 1 MG TAB PO PRN (15:05)
[2024-04-05] MEDS ORDERED: MAG HYDROX/AL HYDROX/SIMETH 355 ML BOTTLE PO PRN (15:05)
[2024-04-05] MEDS ORDERED: IPRATROPIUM-ALBUTEROL 3 ML NEB INHALATION PRN (15:08)
[2024-04-05] MEDS ORDERED: BACLOFEN 10 MG TAB PO PRN (15:08)
[2024-04-05] MEDS: NICOTINE 14MG/24HR PATCH TRANSDERM SCH (15:28)
[2024-04-05] MEDS: ONDANSETRON ODT 4 MG TAB PO PRN (18:19)
[2024-04-05] MEDS: GABAPENTIN 300 MG CAP PO SCH (18:19)
[2024-04-06] MEDS ORDERED: ALBUTEROL HFA INHALER INHALATION PRN (03:11)
[2024-04-06] MEDS: LEVOTHYROXINE 75 MCG TAB PO SCH (06:38)
[2024-04-06] MEDS: ESCITALOPRAM 20 MG TAB PO SCH (09:21)
[2024-04-06] MEDS: PANTOPRAZOLE 40 MG TABLET PO SCH (09:21)
[2024-04-06] MEDS: ACETAMINOPHEN TAB 325 MG TAB PO PRN (09:23)
[2024-04-06 10:10] LABS: ALT 25 U/L (4-34); AST 26 U/L (14-36); Albumin 4.2 g/dL (3.5-5.0); Alkaline Phosphatase 71 U/L (38-126); Bilirubin,Unconjugated 0.5 mg/dL (0.0-1.1); Total Bilirubin 0.5 mg/dL (0.2-1.3)
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
[2024-04-06] MEDS ORDERED: traZODone HCL 50 MG TAB PO PRN (14:00)
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
[2024-04-06] MEDS: risperiDONE 0.5 MG TAB PO SCH (15:40)
[2024-04-06] MEDS: SYMBICORT 80-4.5 MCG INHALER INHALATION SCH (21:59)
[2024-04-07 08:42] LABS: Chol/HDL Ratio 3.02 Ratio; LDL Cholesterol,Calculated 115.5 mg/dL (0.0-131.0); VLDL Calculation 15.64 mg/dL (5.00-40.00)
--- NOTE | 2024-04-07 12:06 | P.PN ---
Progress Note - Text Progress Note Date: 04/07/24 Interval history: Patient was seen wandering the hallways and was directable and agreeable to s [place] with engineering writer. She continues having intense eye contact. She was a bit less focused on the other individual trying to get her. She claims that "my daughter said that he might overdose on pills to come up here". She claims that she has trouble swallowing water and needs carbonated water or Sprite due to her esophagus condition. States that other than that she is tolerating medications well, feels more optimistic, denying any depression or anxiety at this time. That she is eating fairly. At this time patient denies any suicidal or homicidal ideations intent or plan. Denies any Auditory or visual hallucinations. Patient denies any side effects from the medications and has been compliant with meds. Mental status exam: General Appearance: Patient appears to be stated age is alert, directable, and cooperative. Behavior: No agitated behavior. Patient is calm and directable intense eye contact Speech: Patient's speech is fluent and nonpressured. Mood/Affect: Mood is improving mildly, affect is congruent and constricted. Improving mildly Suicidality/Homicidality: Patient denies having any suicidal or homicidal ideation intent or plan. Perceptions: Patient denies any auditory or visual hallucinations. Though content/process: Thought content and thought process is linear and goal- directed. Less paranoia today, less focused on her delusions Memory and concentration: AOX3, grossly intact for the purposes of this session Judgment and insight: Poor, improving mildly Assessment/Plan: Continue with current diagnosis. Patient continues to meet criteria for inpatient psychiatric admission for symptom stabilization and safety. Patient will be maintained on current psychotropic medication regimen. Monitor for medication compliance and for any psychotropic medication side effects. Will continue to monitor ongoing response to treatment. Encouraged participation in milieu.
[2024-04-07] MEDS: FLUTICASONE NASAL 50MCG/SPRAY 16GM BTL EA NOSTRIL PRN (16:56)
[2024-04-08 07:09] VITALS: RESP 16
[2024-04-08] MEDS ORDERED: PROCHLORPERAZINE 5 MG TAB PO PRN (10:43)
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
--- NOTE | 2024-04-09 11:50 | P.PN ---
Progress Note - Text Progress Note Date: 04/09/24 Interval History: Patient was seen wandering the hallways and was directable and agreeable to julia cross with automobile and property underwriter in the office. She states feeling well and reports improvements in her restlessness at night with the Requip. She states her daughter whom she is planning on moving to [place] with has her phone off and the only way she speaks to her is if the daughter contacts her. Discussed with patient the need to confirm this plan with daughter however patient states she is willing to return home with her mother instead who lives in town. Patient otherwise denied any paranoia stating she feels safe at home with her mom's. Patient notably was less fixated on ex than previous encounters. At this time patient denies any suicidal or homicidal ideations, intent or plan. Patient denies any auditory, visual hallucinations and denies any paranoia or delusions. Patient denies any side effects from the medications and has been compliant with meds. Mental Status Exam: General Appearance: Patient appears to be stated age is alert, directable, and cooperative. Behavior: Patient is calmly seated without any agitated behavior. Speech: Patient's speech is fluent and nonpressured. Mood/Affect: Mood is improving mildly, affect is congruent and constricted. Suicidality/Homicidality: Patient denies having any suicidal or homicidal ideation intent or plan. Perceptions: Patient denies any visual hallucinations and denies any auditory hallucinations Though content/process: There is no evidence of any delusional thought content and thought process is linear and goal-directed. Patient less fixated on past relationship with ex Memory and concentration: AOX3, grossly intact for the purposes of this session Judgment and insight: Improving mildly Assessment Suicide attempt via overdose Psychosis, unspecified Cannabis use disorder Plan: -Patient continues to meet criteria for inpatient psychiatric admission for symptom stabilization and safety. Patient has signed adult voluntary form and medication consent and was placed in patient's chart. -Medications: Continue Risperdal 0.5 mg twice daily for psychosis/adjunct, Lexapro 20 mg daily for depression, trazodone 50 mg as needed at bedtime for insomnia, Requip 0.25 mg at bedtime for RLS -When necessary Ativan and Haldol for agitation/aggression. -Labs: Reviewed -SW on board for discharge planning. Encouraged the patient to participate in milieu. Anticipate discharge home with mother tomorrow
[2024-04-10 07:05] VITALS: BP 114/76; PULSE 82; TEMP 98
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
== END 2024-04-10 12:20 | disposition home or self-care (01) | DRG 750 ==
LOC: EC 03:45 → 3MHU 15:00
PROVIDERS: ADMIT Psychiatry & Neurology Psychiatry; ATTEND Psychiatry & Neurology Psychiatry
DX: F29 Unspecified psychosis not due to a substance or known physiological condition (principal); F17.200 Nicotine dependence, unspecified, uncomplicated; F32.A Depression, unspecified; F40.00 Agoraphobia, unspecified; F43.10 Post-traumatic stress disorder, unspecified; F90.9 Attention-deficit hyperactivity disorder, unspecified type; G24.9 Dystonia, unspecified; R13.10 Dysphagia, unspecified; E89.0 Postprocedural hypothyroidism; F12.10 Cannabis abuse, uncomplicated; G47.00 Insomnia, unspecified; J45.909 Unspecified asthma, uncomplicated; M79.7 Fibromyalgia; L30.9 Dermatitis, unspecified; T50.902A Poisoning by unspecified drugs, medicaments and biological substances, intentional self-harm, initial encounter; Z56.0 Unemployment, unspecified; Z79.890 Hormone replacement therapy; Z79.899 Other long term (current) drug therapy; Z85.850 Personal history of malignant neoplasm of thyroid; Z91.51 Personal history of suicidal behavior; Z28.310 Unvaccinated for COVID-19; Z28.21 Immunization not carried out because of patient refusal; Z63.5 Disruption of family by separation and divorce; Z88.5 Allergy status to narcotic agent; Z71.51 Drug abuse counseling and surveillance of drug abuser
CPT/HCPCS: 36415; 80053; 80061; 80076; 80143; 80179; 80306; 80320; 81001; 81025; 82075; 83036; 84443; 85025; 87635; 93005; 99285